=== PATIENT | female | born 1960 | race Caucasian/White ===

== ENCOUNTER 2017-10-08 19:08 | Emergency (ER) | payer BC ==
[2017-10-08] MEDS: MORPHINE SULFATE 10 MG/ML VIAL. IV (19:30)
[2017-10-08] MEDS: ONDANSETRON PF 4 MG/2 ML VIAL. IV (19:30)
[2017-10-08 19:32] LABS: BASO # 0.1 x10^3/uL (0.0-0.2); BASO % 1 % (0-3); EOS # 0.1 x10^3/uL (0.0-0.7); EOS % 1 % (0-3); HEMATOCRIT 48.4 % (36.0-47.0); HEMOGLOBIN 17.1 g/dL (12.0-15.5); LYMPH # 1.7 x10^3/uL (1.0-4.8); LYMPH % 9 % (24-48); MEAN CORPUSCULAR HEMOGLOBIN 31 pg (25-35); MEAN CORPUSCULAR HGB CONC 35 g/dL (31-37); MEAN CORPUSCULAR VOLUME 89 fL (79-100); MONO # 0.9 x10^3/uL (0.0-1.1); MONO % 5 % (0-9); NEUT # 16.4 x10^3uL (1.8-7.7); NEUT % 86 % (31-73); PLATELET COUNT 191 x10^3/uL (140-400); RED BLOOD COUNT 5.45 x10^6/uL (3.50-5.40); RED CELL DISTRIBUTION WIDTH 13.9 % (11.5-14.5); WHITE BLOOD COUNT 19.2 x10^3/uL (4.0-11.0)
[2017-10-08 19:33] LABS: ADD MAN DIFF? YES
[2017-10-08] MEDS: IV NORMAL SALINE 1000ML BAG 1,000 ML IV ×2 (19:46→20:43)
[2017-10-08 19:48] LABS: ANION GAP 12 (6-14); BLOOD UREA NITROGEN 12 mg/dL (7-20); BUN/CREATININE RATIO 15 (6-20); CALCIUM 9.8 mg/dL (8.5-10.1); CARBON DIOXIDE 28 mmol/L (21-32); CHLORIDE 101 mmol/L (98-107); CREATININE 0.8 mg/dL (0.6-1.0); GFR 73.9; GLUCOSE 308 mg/dL (70-99); POTASSIUM 3.1 mmol/L (3.5-5.1); SODIUM 141 mmol/L (136-145)
[2017-10-08 19:50] LABS: ETHANOL < 10 mg/dL (0-10)
[2017-10-08 19:52] LABS: ALBUMIN 3.9 g/dL (3.4-5.0); ALBUMIN/GLOBULIN RATIO 0.9 (1.0-1.7); ALK PHOS 170 U/L (46-116); ALT (SGPT) 28 U/L (14-59); AST (SGOT) 13 U/L (15-37); LIPASE 135 U/L (73-393); TOTAL BILIRUBIN 1.1 mg/dL (0.2-1.0); TOTAL PROTEIN 8.2 g/dL (6.4-8.2)
[2017-10-08 20:30] LABS: AMPHETAMINE/METHAMPHETAMINE NEG (NEG); BARBITURATES NEG (NEG); BENZODIAZEPINES NEG (NEG); CANNABINOIDS NEG (NEG); COCAINE NEG (NEG); ETHANOL, URINE NEG (NEG); METHADONE NEG (NEG); OPIATES NEG (NEG); PHENCYCLIDINE NEG (NEG)
[2017-10-08] MEDS: POTASSIUM CHLORIDE 20 MEQ TABLET.ER. PO (20:44)
[2017-10-08 20:47] LABS: BILIRUBIN,URINE MODERATE (NEG); CLARITY,URINE TURBID; COLOR,URINE RED; GLUCOSE,URINE >=1000 mg/dL (NEG); NITRITE,URINE POSITIVE (NEG); PROTEIN,URINE >=300 mg/dL (NEG-TRACE)
[2017-10-08 20:56] LABS: BACTERIA,URINE 0 /HPF (0-FEW); HYALINE CASTS, URINE MANY /HPF; RBC,URINE TNTC /HPF (0-2); SQUAMOUS EPITHELIAL CELL,UR MOD /LPF; WBC,URINE TNTC /HPF (0-4)
[2017-10-08 21:21] LABS: % BANDS 3 % (0-9); % EOS 1 % (0-5); % LYMPHS 11 % (24-48); % MONOS 5 % (0-10); % SEGS 80 % (35-66); PLT ESTIMATE ADEQUATE (ADEQUATE)
[2017-10-08] MEDS: CIPROFLOXACIN 400MG PREMIX 200 ML IV (22:00)
== END 2017-10-08 21:55 | disposition home or self-care (01) ==
LOC: ER 21:55
DX: N20.0 Calculus of kidney (principal); R30.0 Dysuria; E27.8 Other specified disorders of adrenal gland; R73.9 Hyperglycemia, unspecified; Z88.1 Allergy status to other antibiotic agents; Z88.2 Allergy status to sulfonamides
CPT/HCPCS: 36415; 74176; 80053; 80307; 81001; 83690; 85007; 85025; 87086; 99285-25; G0480; J7030

== ENCOUNTER → 2018-10-10 | Outpatient (CLI) | payer BC ==
[2018-09-27 16:00] VITALS: BP 140/78
[~2018-10-10] MED LIST: ASPI325T11 PO; CIPR500T94 PO; HYDR-3164 PO; ONDA4TAB10 SL; REGADENOSON 0.4 MG/5 ML DISP.SYRIN. IV ONE; TAMS0.4C97 PO
--- NOTE | 2018-10-10 10:23 | CARD ---
MR#: [id number] Date of Study: 10/10/2018 Ordering Physician: MARIO ALBERTO ALBRIGHT, Referring Physician: MARIO ALBERTO ALBRIGHT Tech: Kelsi Barrera RDCS APPROVED REPORT EXAM: Two-dimensional and M-mode echocardiogram with Doppler and color Doppler. Other Information Quality : Good INDICATION CVA/TIA Echo Enhancing Agent Agent/Amount Used: Agitated Saline 8mL 2D DIMENSIONS RVDd2.8 (2.9-3.5cm)Left Atrium(2D)3.3 (1.6-4.0cm) IVSd1.4 (0.7-1.1cm)Aortic Root(2D)2.9 (2.0-3.7cm) LVDd3.6 (3.9-5.9cm)LVOT Diameter2.0 (1.8-2.4cm) PWd1.2 (0.7-1.1cm)LVDs2.8 (2.5-4.0cm) FS (%) 30.0 %SV27.4 ml LVEF(%)60.0 (>50%) Aortic Valve AoV Peak Cb.143.1cm/sAoV VTI19.5cm AO Peak GR.8.2mmHgLVOT Peak Cb.126.0cm/s AO Mean GR.4mmHgAVA (VMAX)2.79cm2 CARMEN (VTI)3.10cm2 Mitral Valve MV E Ndkaogbt32.0cm/sMV DECEL YNFM563ta MV A Svvhgbym577.1cm/sE/A Ratio0.6 Pulmonary Vein S1 Siekszxd66.1cm/sD2 Kvtgtpgj64.1cm/s LEFT VENTRICLE The left ventricle is normal size. There is mild concentric left ventricular hypertrophy. The left ve ntricular systolic function is normal. The Ejection Fraction is 60-65%. There is normal LV segmental wall motion. Transmitral Doppler flow pattern is Grade I-abnormal relaxation pattern. RIGHT VENTRICLE The right ventricle is normal size. The right ventricular systolic function is normal. ATRIA The left atrium size is normal. The right atrium size is normal. The interatrial septum is intact wit h no evidence for an atrial septal defect or patent foramen ovale as noted on 2-D or Doppler imaging. Injection of bubbles documented no interatrial shunt. AORTIC VALVE The aortic valve is calcified but opens well. Doppler and Color Flow revealed no significant aortic r egurgitation. There is no significant aortic valvular stenosis. MITRAL VALVE The mitral valve is calcified but opens well. There is no evidence of mitral valve prolapse. There is no mitral valve stenosis. Doppler and Color Flow revealed no mitral valve regurgitation noted. TRICUSPID VALVE The tricuspid valve is normal in structure and function. Doppler and Color Flow revealed no tricuspid valve regurgitation noted. There is no tricuspid valve stenosis. PULMONIC VALVE The pulmonic valve is not well visualized. Doppler and Color Flow revealed no pulmonic valvular regur gitation. There is no pulmonic valvular stenosis. GREAT VESSELS The aortic root is normal in size. The ascending aorta is normal in size. The IVC is normal in size a nd collapses >50% with inspiration. PERICARDIAL EFFUSION There is no evidence of significant pericardial effusion. Critical Notification Critical Value: No <Conclusion> The left ventricular systolic function is normal. The Ejection Fraction is 60-65%. There is normal LV segmental wall motion. Transmitral Doppler flow pattern is Grade I-abnormal relaxation pattern. Injection of bubbles documented no interatrial shunt. There is no evidence of significant pericardial effusion. Signed by : Mario Alberto Albright, Electronically Approved : 10/10/2018 10:22:37
--- NOTE | 2018-10-10 13:51 | RAD ---
MR#: [id number] Date of Study: 10/10/2018 Ordering Physician: MARIO ALBERTO ALBRIGHT Referring Physician: CIRO MORALES Tech: RT Isabelle Conley) (N) APPROVED REPORT Test Type: Pharmacological Stress Nurse/Tech: Arina Crabtree R.N. Test Indications: CVA Cardiac History: htn, CVA, smoker Medications: See Electronic Medical Record Medical History: See Electronic Medical Record Resting ECG: SR w/ pacs Resting Heart Rate: 87 bpm Resting Blood Pressure: 138/77mmHg Pretest Chest Pain: No chest pain Nurse/Tech Notes S1S2, lung CTA Consent: The procedure was explained to the patient in lay terms. Informed consent was witnessed. Raheel eout was entered into [employer]. History and Stress Test performed by RT Jarvis (Judd) (N) Pharm. Details Pharmacologic stress testing was performed using 0.4mg per 5ml of regadenoson given intravenously ove r 7-10 seconds. Stress Symptoms SOB POST EXERCISE Reason for Termination: Infusion complete Max HR: 106 bpm Max Blood Pressure: 151/59mmHg Blood Pressure response to exercise: Normal blood pressure response during stress. Heart Rate response to exercise: wnl Chest Pain: No. Arrhythmia: No. ST Change: No. INTERPRETATION Stress EKG Conclusion: Baseline EKG showed sinus rhythm. No ischemic changes at peak stress. No arr hythmias. Imaging Protocol IMAGE PROTOCOL: Rest Tc-99m/stress Tc-99m 1 day Rest: Stress: Viability: Radiopharm.Tc99m GjaemesspTq78i Sestamibi Etji26dHn 33mCi Duration 15min. 15min. Img Date 10/10/2018 10/10/2018 Inj-Img Wqme91ktf. 60min. Rest Admin Site:IV - Right HandAdministrator:RT Isabelle Conley)(N) Stress Admin Site: IV - Right HandAdministrator: IRIS Garcia STRESS DATA End Diast. Vol.79.0mlLVEDV index BSA41.0ml End Syst. Vol.27.0mlLVESV index BSA14.0ml Myocardial Qmun121.0gEject. Jzcwyewz14.0% Stress Scores Regional WT2.00Summed WT21.00 Regional WM0.00Summed WM12.00 Study quality was good. Left Ventricular size was Normal at Rest and Stress. Lung uptake was . Left Ventricular ejection fraction is 66%. The rest and stress images show normal perfusion, normal contraction and thickening. LV Perf. Quant 17 Seg. SSS6.00 17 Seg. SRS4.00 17 Seg. SDS2.00 Stress Defect Extent (% LAD)0.00Rest Defect Extent (% LAD)0.00Rev. Defect Extent (% LAD)0.00 Stress Defect Extent (% LCX) 55.00Rest Defect Extent (% LCX)52.50Rev. Defect Extent (% LCX)13.80 Stress Defect Extent (% RCA)4.40Rest Defect Extent (% RCA)0.00Rev. Defect Extent (% RCA)4.40 Stress Defect Extent (% RAFITA)12.40Rest Defect Extent (% RAFITA)9.80Rev. Defect Extent (% RAFITA)5.00 Conclusion 1. Regadenoson cardioisotope stress test did not show any evidence of ischemia or infarct. 2. Normal left ventricular systolic function with ejection fraction calculated at 66%. 3. Low risk for cardiac events. Signed by : Mario Alberto Albright, Electronically Approved : 10/10/2018 13:51:25
== END | disposition home or self-care (01) ==
LOC: NM 07:36
PROVIDERS: ATTEND Internal Medicine Cardiovascular Disease
DX: I08.0 Rheumatic disorders of both mitral and aortic valves (principal); I63.9 Cerebral infarction, unspecified; I10 Essential (primary) hypertension; Z87.891 Personal history of nicotine dependence
CPT/HCPCS: 78452; 93017; 93306; A9500; J2785